=== PATIENT | male | born 1975 | race Caucasian/White ===

== ENCOUNTER 2016-06-26 02:17 | Emergency (ER) | payer SELFPAY ==
[~2016-06-26] VITALS: Ht 177.8 cm; Wt 95.5 kg
[2016-06-26 02:20] VITALS: Ht 177.8 cm; Wt 95.5 kg
[2016-06-26] MEDS ORDERED: ACETAMINOPHEN 500 MG TAB PO STA (03:43)
--- NOTE | 2016-06-26 03:46 | ERD ---
ER Documentation Chief Complaint Date/Time DATE: 06/26/16 TIME: 03:45 Chief Complaint cough x 2 days HPI 40-year-old male presents here in emergency department for complaints of cough for 2 days. Patient is having dry cough, does not cough up any phlegm or blood. Patient does not have any shortness of breath or wheezing. Patient denies any chest pain or palpitations. Patient denies any dizziness. Patient denies any dyspnea on exertion or dyspnea on lying down. Patient is also complains of sore throat, runny congestion. Patient did not take any medications to help with symptoms. Patient denies any sick contacts. ROS All systems reviewed and are negative except as per history of present illness. Medications Home Meds Reported Medications [none] Unknown Strength No Conflict Check 06/26/16 Allergies Allergies: Coded Allergies: No Known Allergy (Unverified , 06/26/16) PMhx/Soc Medical and Surgical Hx: pt denies Medical Hx, pt denies Surgical Hx FmHx Family History: No coronary disease, No diabetes, No other Physical Exam Vitals Vital Signs Date Time Temp Pulse Resp B/P Pulse Ox O2 Delivery O2 Flow Rate FiO2 06/26/16 04:00 102 06/26/16 02:20 97.8 118 20 176/90 100 Physical Exam GENERAL: The patient is well developed and appropriate for usual state of health, in no apparent distress. CHEST: Clear to auscultation bilaterally. There are no rales, wheezes or rhonchi. HEART: Regular rate and rhythm. No murmurs, clicks, rubs or gallops. No S3 or S4. ABDOMEN: Soft, nontender and nondistended. Good bowel sounds. No rebound or guarding. No gross peritonitis. No gross organomegaly or masses. No Wagner sign or McBurney point tenderness. BACK: No midline or flank tenderness. EXTREMITIES: Equal pulses bilaterally. There is no peripheral clubbing, cyanosis or edema. No focal swelling or erythema. Full range of motion. Grossly neurovascularly intact. NEURO: Alert and oriented. Cranial nerves 2-12 intact. Motor strength in all 4 extremities with 5/5 strength. Sensation grossly intact. Normal speech and gait. SKIN: There is no apparent rash or petechia. The skin is warm and dry. HEMATOLOGIC AND LYMPHATIC: There is no evidence of excessive bruising or lymphedema. No gross cervical, axillary, or inguinal lymphadenopathy. Results 24 hrs Current Medications Medications (Trade) Dose Ordered Sig/Rachele Route PRN Reason Start Time Stop Time Status Last Admin Dose Admin Guaifenesin/ Codeine Phosphate (Robitussin Ac Liquid Cup) 10 ml ONCE ONCE PO 06/26/16 04:00 06/26/16 04:01 DC 06/26/16 04:03 Acetaminophen (Tylenol Tab) 500 mg ONCE STAT PO 06/26/16 03:43 06/26/16 03:45 DC 06/26/16 04:02 Ibuprofen (Motrin) 400 mg ONCE ONCE PO 06/26/16 04:00 06/26/16 04:01 DC 06/26/16 04:03 EKG was done, read by me and is sinus tachycardia at a rate of 102, normal axis , there is no ST changes or changes in the EKG that indicates any cardiac emergencies at this time. Patient's EKG was also reviewed by Dr. Ambriz. Impression: no acute findings on EKG PROCEDURE: CHEST - 1 VIEW CLINICAL INDICATION: 40-year-old male with cough. TECHNIQUE: A single frontal AP view of the chest was performed portably. The images were reviewed on a PACS workstation. COMPARISON: None. FINDINGS: There is a shallow inspiration accentuating the heart size. Accounting for this , the cardiomediastinal silhouette is within normal limits. There is mild left basilar subsegmental atelectasis. There is a questionable nodular density within the right lower lung zone measuring 8 x 8 mm which may represent a granuloma. There is no evidence for an infiltrate. There is no evidence for congestive heart failure. There is no evidence for pneumothorax. The osseous structures are intact. IMPRESSION: 1. Shallow inspiration. 2. Mild left basilar subsegmental atelectasis. 3. Questionable 8 mm nodular density within the right lower lung zone which may represent a granuloma. Prior studies are not available to assess interval change. .Rohit Lovett MD, Date Time Electronically viewed and signed by .Rohit Lovett MD, on 06/26/2016 04:21 .M/ CC: BEVERLY SANTANA NP Procedures/MDM Medical Decision Making: Patient symptoms are most likely consistent with acute bronchitis, which viral in origin. There is an incidental finding of a granuloma noted in the chest right lower lobe, this was discontinued with any physician, Dr. Ambriz, considering patient has been having cough for the last 2 days, no night sweats, no weight loss, no fever, appear well and is hemodynamically stable, there is low suspicion for tuberculosis. There is low suspicion for Pneumonia at this time since patients lungs sounds are clear, patient O2 saturation is normal and patient doesnt show any respiratory distress. Patients chest xray doesnt show infiltrates or any other cardiopulmonary emergencies at this time. There is low suspicion for other cardiopulmonary emergencies at this time such as CHF, Pulmonary Embolism, Pneumothorax, Aortic Aneurysm or any other cardiopulmonary emergencies at this time. There is low suspicion for sepsis. Patient appears well and is hemodynamically stable. Fever is controlled with medicines. Disposition: Home. Condition: Stable Prescriptions: Guaifenesin with codeine, Zyrtec, albuterol, and ibuprofen Instructions: Patient is advised to take medications as prescribed. Patient is advised to rest. Patient advised to increase fluid intake, do humidifier at home and if possible, do salt water gargles. Patient is advised that if symptoms are worse, shortness of breath, uncontrolled fever, stridor, vomiting, worst signs and symptoms to return to emergency department immediately. Otherwise, patient is advised to follow up with primary doctor in 5-7 days. Departure Diagnosis: Primary Impression: Acute bronchitis Bronchitis organism: unspecified organism Qualified Code: J20.9 - Acute bronchitis, unspecified organism Condition: Stable Patient Instructions: Bronchitis, No Antibiotic (Adult) Additional Instructions: Patient is advised to take medications as prescribed. Patient is advised to rest. Patient advised to increase fluid intake, do humidifier at home and if possible, do salt water gargles. Patient is advised that if symptoms are worse, shortness of breath, uncontrolled fever, stridor, vomiting, worst signs and symptoms to return to emergency department immediately. Otherwise, patient is advised to follow up with primary doctor in 5-7 days. BEVERLY SANTANA NP Jun 26, 2016 03:46
[2016-06-26 04:00] VITALS: PULSE 102
[2016-06-26] MEDS ORDERED: GUAIFENESIN/CODEINE 5ML CUP PO ONE (04:00)
[2016-06-26] MEDS ORDERED: IBUPROFEN 200 MG TAB PO ONE (04:00)
--- NOTE | 2016-06-26 04:21 | RADRPT ---
PROCEDURE: CHEST - 1 VIEW CLINICAL INDICATION: 40-year-old male with cough. TECHNIQUE: A single frontal AP view of the chest was performed portably. The images were reviewed on a PACS workstation. COMPARISON: None. FINDINGS: There is a shallow inspiration accentuating the heart size. Accounting for this, the cardiomediasti nal silhouette is within normal limits. There is mild left basilar subsegmental atelectasis. There is a questionable nodular density within the right lower lung zone measuring 8 x 8 mm which may rep resent a granuloma. There is no evidence for an infiltrate. There is no evidence for congestive he art failure. There is no evidence for pneumothorax. The osseous structures are intact. IMPRESSION: 1. Shallow inspiration. 2. Mild left basilar subsegmental atelectasis. 3. Questionable 8 mm nodular density within the right lower lung zone which may represent a granulo ma. Prior studies are not available to assess interval change. .Rohit Lovett MD, MD Date Time Electronically viewed and signed by .Rohit Lovett MD, on 06/26/2016 04:21 .M/
[2016-06-26] MEDS ORDERED: ALBU8.5H3 INH (04:40)
[2016-06-26] MEDS ORDERED: CETI10CA PO (04:40)
[2016-06-26] MEDS ORDERED: IBUP400T22 PO (04:40)
[2016-06-26] MEDS ORDERED: GUAI473L22 PO (04:40)
== END 2016-06-26 04:59 | disposition home or self-care (01) ==
LOC: FTE 02:17
DX: J20.9 Acute bronchitis, unspecified (principal)
CPT/HCPCS: 71010; 93005